=== PATIENT | female | born 1980 | race African-American/Black ===

== ENCOUNTER 2016-11-13 18:57 | Emergency (ER) | payer BC, OTHER ==
[~2016-11-13] VITALS: Ht 165.1 cm; Wt 77.5 kg
[~2016-11-13 18:57] MED LIST: BACT800T5 PO; PYRI200T4 PO
[2016-11-13 18:59] VITALS: BP 133/72; PULSE 86; RESP 16; TEMP 97.9; O2SAT 99
[2016-11-13] MEDS ORDERED: ZOLO50TA PO (19:39)
[2016-11-13] MEDS ORDERED: PYRI200T4 PO (19:41)
[2016-11-13] MEDS ORDERED: CIPR-9 PO (19:41)
--- NOTE | 2016-11-13 19:43 | PD ---
HPI Chief Complaint: Complaint Time Seen by Provider: 19:41 Travel History International Travel<30 days: No Contact w/Intl Traveler<30days: No Traveled to known affect area: No History of Present Illness HPI 35-year-old black female presents with three-day history of increased urinary frequency, urgency, dysuria which she reports similar to urinary tract infection she has had in the past. She denies any fever chills. No back pain. No abdominal pain. Symptoms are moderate. No alleviating factors. PFSH Past Medical History Arthritis: No Asthma: No Anxiety: Yes Depression: Yes Heart Rhythm Problems: No Cardiovascular Problems: No High Cholesterol: No Chest Pain: No Congestive Heart Failure: No COPD: No Cerebrovascular Accident: No Diminished Hearing: No GERD: No Genitourinary: Yes (uti) Headaches: No Hepatitis: No Hiatal Hernia: No Hypertension: No Kidney Stones: No Musculoskeletal: No Neurologic: No Reproductive: No Respiratory: No Immunizations Current: No Migraines: No Myocardial Infarction: No Renal Failure: No Seizures: No Sleep Apnea: No Ulcer: No Tetanus Vaccination: < 5 Years Influenza Vaccination: No ?: Not LMP: 11/11/16 Menopausal: Yes : 4 Para: 4 : 1 Dilation and Curettage (D&C): Yes Tubal Ligation: Yes Past Surgical History Abdominal Surgery: No Appendectomy: No Cardiac Surgery: No Section: Yes (X2) Cholecystectomy: No Ear Surgery: No Endocrine Surgery: No Eye Surgery: No Genitourinary Surgery: No Gynecologic Surgery: No Neurologic Surgery: No Oral Surgery: No Thoracic Surgery: No Other Surgery: Yes ( in 1999) Family History Family Hypercholesterolemia: Yes (PATERNAL) Social History Alcohol Use: Yes (OCCASIONALLY) Tobacco Use: Yes ( occ) Substance Use: No Allergies-Medications (Allergen,Severity, Reaction): Coded Allergies: No Known Allergies (Verified , 11/13/16) Reported Meds & Prescriptions Reported Meds & Active Scripts Active Pyridium (Phenazopyridine HCl) 200 Mg Tab 200 Mg PO Q8H PRN Cipro (Ciprofloxacin HCl) 500 Mg Tab 500 Mg PO BID Reported Zoloft (Sertraline HCl) 50 Mg Tab 50 Mg PO DAILY Review of Systems Except as stated in HPI: all other systems reviewed are Neg Physical Exam Narrative GENERAL: This is a well-nourished, well-developed patient, in no apparent distress. SKIN: No rashes, ecchymoses or lesions. Warm and dry. HEAD: Atraumatic. Normocephalic. EYES: PERRL, EOMI, no discharge or injection. No scleral icterus. EARS: Clear NOSE: Nasal turbinates appear normal. THROAT: Mucosa pink and moist. Airway patent. NECK: Trachea midline. supple, moves head freely. LUNGS: Clear to auscultation. CV: Regular in rhythm. ABDOMEN: Soft nontender. No CVA tenderness EXT: No clubbing cyanosis or edema. Data Data Last Documented VS Vital Signs Date Time Temp Pulse Resp B/P Pulse Ox O2 Delivery O2 Flow Rate FiO2 11/13/16 19:37 14 11/13/16 18:59 97.9 86 133/72 99 Room Air Orders Urinalysis - C+S If Indicated (11/13/16 19:17) Ciprofloxacin (Cipro) (11/13/16 19:45) Phenazopyridine (Pyridium) (11/13/16 19:45) Urine Culture (11/13/16 19:30) Labs Laboratory Tests Test 11/13/16 19:30 Urine Color YELLOW Urine Turbidity HAZY Urine pH 5.5 Urine Specific [place] 1.022 Urine Protein TRACE mg/dL Urine Glucose (UA) NEG mg/dL Urine Ketones NEG mg/dL Urine Occult Blood SMALL Urine Nitrite POS Urine Bilirubin NEG Urine Urobilinogen LESS THAN 2.0 MG/DL Urine Leukocyte Esterase LARGE Urine RBC 17 /hpf Urine WBC /hpf Urine Squamous Epithelial 1 /hpf Cells Urine Bacteria MANY /hpf Urine Mucus FEW /lpf Microscopic Urinalysis Comment CULTURE INDICATED MDM Medical Decision Making Medical Screen Exam Complete: Yes Emergency Medical Condition: Yes Medical Record Reviewed: Yes Interpretation(s) Laboratory Tests Test 11/13/16 19:30 Urine Color YELLOW Urine Turbidity HAZY Urine pH 5.5 Urine Specific [place] 1.022 Urine Protein TRACE mg/dL Urine Glucose (UA) NEG mg/dL Urine Ketones NEG mg/dL Urine Occult Blood SMALL Urine Nitrite POS Urine Bilirubin NEG Urine Urobilinogen LESS THAN 2.0 MG/DL Urine Leukocyte Esterase LARGE Urine RBC 17 /hpf Urine WBC /hpf Urine Squamous Epithelial 1 /hpf Cells Urine Bacteria MANY /hpf Urine Mucus FEW /lpf Microscopic Urinalysis Comment CULTURE INDICATED Differential Diagnosis Differential diagnoses: UTI, vaginitis, pyelonephritis Narrative Course Patient's given Cipro 500 and Pyridium 200 mg by mouth. This is UTI Diagnosis Primary Impression: UTI (urinary tract infection) Patient Instructions: General Instructions Additional Instructions: Rest. Increase fluids. Cipro and Pyridium. Follow-up with a primary care doctor in one week. Return to the ER for any problems. Med/Other Pt SpecificInfo: Prescription(s) given Scripts Phenazopyridine (Pyridium)200 Mg [id number] Mg PO Q8H PRN (DYSURIA) #9 TAB Prov:Lv Prescott MD 11/13/16 Ciprofloxacin (Cipro)500 Mg [id number] Mg PO BID #10 TAB Prov:Lv Prescott MD 11/13/16 Disposition: 01 DISCHARGE HOME Condition: Stable Pradip Washington Nov 13, 2016 19:43
[2016-11-13] MEDS ORDERED: PHENAZOPYRIDINE HCL 200 MG TAB PO ONE (19:45)
[2016-11-13] MEDS ORDERED: CIPROFLOXACIN 500 MG TAB PO ONE (19:45)
[2016-11-13 19:46] LABS: BACTERIA, URINE MANY /hpf; BLOOD, URINE SMALL (NEG); COMMENT (UR) CULTURE INDICATED; CULTURE IF INDICATED CULTURE INDICATED; GLUCOSE,URINE NEG (NEG); KETONE, URINE NEG (NEG); MUCUS URINE FEW /lpf (OCC); PH, URINE 5.5 (5.0-8.5); SQUAMOUS EPITHELIAL CELL URINE 1 /hpf (0-5); URINE COLOR YELLOW (YELLW/STRAW)
[2016-11-13 19:47] LABS: NITRITE,URINE POS (NEG)
== END 2016-11-13 19:49 | disposition home or self-care (01) ==
LOC: NEPB 18:57
DX: N39.0 Urinary tract infection, site not specified (principal); B96.29 Other Escherichia coli [E. coli] as the cause of diseases classified elsewhere
CPT/HCPCS: 81001; 87077; 87086; 87186; 99283

== ENCOUNTER 2016-11-26 17:00 | Emergency (ER) | payer BC, OTHER ==
[~2016-11-26] VITALS: Ht 162.6 cm; Wt 78.0 kg
[~2016-11-26 17:00] MED LIST changes: -BACT800T5 PO; +CIPR-9 PO; +ZOLO50TA PO
[2016-11-26 17:02] VITALS: BP 134/85; PULSE 90; RESP 16; TEMP 98.6; O2SAT 96
--- NOTE | 2016-11-26 17:52 | PD ---
HPI Chief Complaint: Complaint Time Seen by Provider: 17:48 Travel History International Travel<30 days: No Contact w/Intl Traveler<30days: No Traveled to known affect area: No History of Present Illness HPI 35-year-old female presents to the emergency department for evaluation of suprapubic tenderness, dysuria that started this morning. Patient was seen up a very tall, 2016 and was diagnosed with UTI. She was given a prescription for Cipro. However, she was found to be resistant to Cipro and switch changed to Macrobid. She states she took the Macrobid her symptoms resolved. However, she started with reoccurring symptoms this morning. She also states that she did have some abnormal vaginal discharge 2 days ago and believes she may have a yeast infection. She denies any risk of STDs reporting no new sexual partners. Patient also reports some vaginal dryness and believes she may have a yeast infection. No fevers or chills. No back pain. No nausea or vomiting. Patient denies reporting a previous tubal ligation. PFSH Past Medical History Arthritis: No Asthma: No Anxiety: Yes Depression: Yes Heart Rhythm Problems: No Cardiovascular Problems: No High Cholesterol: No Chest Pain: No Congestive Heart Failure: No COPD: No Cerebrovascular Accident: No Diminished Hearing: No GERD: No Genitourinary: Yes (uti) Headaches: No Hepatitis: No Hiatal Hernia: No Hypertension: No Kidney Stones: No Musculoskeletal: No Neurologic: No Reproductive: No Respiratory: No Immunizations Current: No Migraines: No Myocardial Infarction: No Renal Failure: No Seizures: No Sleep Apnea: No Ulcer: No ?: Unknown LMP: 8 days ago Menopausal: Yes : 4 Para: 4 : 1 Dilation and Curettage (D&C): Yes Tubal Ligation: Yes Past Surgical History Abdominal Surgery: No Appendectomy: No Cardiac Surgery: No Section: Yes (X2) Cholecystectomy: No Ear Surgery: No Endocrine Surgery: No Eye Surgery: No Genitourinary Surgery: No Gynecologic Surgery: No Neurologic Surgery: No Oral Surgery: No Thoracic Surgery: No Other Surgery: Yes ( in 1999) Family History Family Hypercholesterolemia: Yes (PATERNAL) Social History Alcohol Use: Yes (OCCASIONALLY) Tobacco Use: Yes ( occ) Substance Use: No Allergies-Medications (Allergen,Severity, Reaction): Coded Allergies: No Known Allergies (Verified , 11/26/16) Reported Meds & Prescriptions Reported Meds & Active Scripts Active Pyridium (Phenazopyridine HCl) 200 Mg Tab 200 Mg PO Q8H PRN Cipro (Ciprofloxacin HCl) 500 Mg Tab 500 Mg PO BID Review of Systems Except as stated in HPI: all other systems reviewed are Neg Physical Exam Narrative GENERAL: Well-developed well-nourished female patient, ambulatory. Afebrile. SKIN: Warm and dry. HEAD: Normocephalic. Atraumatic. EYES: No scleral icterus. No injection or drainage. NECK: Supple, trachea midline. No JVD or lymphadenopathy. CARDIOVASCULAR: Regular rate and rhythm without murmurs, gallops, or rubs. RESPIRATORY: Breath sounds equal bilaterally. No accessory muscle use. Lungs sounds clear to auscultation. GASTROINTESTINAL: Abdomen soft and nondistended. Mild suprapubic tenderness to palpation. MUSCULOSKELETAL: No cyanosis, or edema. BACK: Nontender without obvious deformity. No CVA tenderness. GENITOURINARY: Normal external genitalia without lesions or erythema. Vaginal vault without blood or drainage. Cervical os was closed without drainage. No cervical motion tenderness. Uterus nontender and nonenlarged. Bilateral adnexa nontender without masses. Pelvic exam was done with nurse at bedside. Data Data Last Documented VS Vital Signs Date Time Temp Pulse Resp B/P Pulse Ox O2 Delivery O2 Flow Rate FiO2 11/26/16 17:08 11/26/16 17:02 98.6 90 16 96 Room Air Orders Urinalysis - C+S If Indicated (11/26/16 17:10) Gc And Chlamydia Pcr (11/26/16 17:47) Wet Prep Profile (11/26/16 17:47) Urine Culture (11/26/16 17:15) Labs Laboratory Tests Test 11/26/16 11/26/16 17:15 17:57 Urine Color DARK-BROWN Urine Turbidity HAZY Urine pH 5.5 Urine Specific [place] 1.015 Urine Protein TRACE mg/dL Urine Glucose (UA) NEG mg/dL Urine Ketones NEG mg/dL Urine Occult Blood TRACE Urine Nitrite POS Urine Bilirubin SMALL Urine Urobilinogen 2.0 MG/DL Urine Leukocyte Esterase LARGE Urine RBC 5 /hpf Urine WBC /hpf Urine WBC Clumps FEW Urine Squamous Epithelial 2 /hpf Cells Urine Bacteria RARE /hpf Microscopic Urinalysis Comment CULTURE INDICATED Clue Cells (Wet Prep) NONE SEEN Vaginal Trichomonas (Wet Prep) NONE SEEN Vaginal Yeast (Wet Prep) NONE SEEN MDM Medical Decision Making Medical Screen Exam Complete: Yes Emergency Medical Condition: Yes Medical Record Reviewed: Yes Differential Diagnosis UTI versus pyelonephritis versus vaginitis Narrative Course 35-year-old female presents to the emergency department for evaluation of urinary symptoms that started this morning as well as possible vaginal candidiasis. Patient appears well on exam. Vital signs are stable. UA is ordered and pending. Patient gives verbal consent for pelvic exam. UA shows trace occult blood, positive nitrate, large leukocyte esterase, consistent with acute infection. Wet prep is negative for clue cells, Trichomonas, yeast. Patient will be discharged prescription for Keflex for UTI. She'll be given her first dose in the emergency department. She is instructed to return for any acute worsening of symptoms that she is to follow- up with her primary care physician. Patient verbalizes agreement and understanding. Diagnosis Primary Impression: UTI (urinary tract infection) Qualified Code: N30.00 - Acute cystitis without hematuria Referrals: Primary Care Physician call for appointment Patient Instructions: General Instructions, Urinary Tract Infection in Women ( ED) Additional Instructions: Take antibiotic as directed until gone. Drink plenty of fluids. Follow-up with your primary care physician. Return to the emergency department for any acute worsening of symptoms. Med/Other Pt SpecificInfo: Prescription(s) given Scripts Cephalexin (Keflex)500 Mg [id number] Mg PO Q8H 7 Days Ref 0 Prov:Francoise Vogt 11/26/16 Disposition: 01 DISCHARGE HOME Condition: Stable Francoise Vogt Nov 26, 2016 17:51
[2016-11-26 18:05] LABS: BACTERIA, URINE RARE /hpf; BLOOD, URINE TRACE (NEG); COMMENT (UR) CULTURE INDICATED; CULTURE IF INDICATED CULTURE INDICATED; GLUCOSE,URINE NEG (NEG); KETONE, URINE NEG (NEG); PH, URINE 5.5 (5.0-8.5); SQUAMOUS EPITHELIAL CELL URINE 2 /hpf (0-5)
[2016-11-26 18:06] LABS: NITRITE,URINE POS (NEG); URINE COLOR DARK-BROWN (YELLW/STRAW)
[2016-11-26] MEDS ORDERED: CEPH-460 PO (18:46)
[2016-11-26] MEDS ORDERED: CEPHALEXIN MONOHYDRATE 500 MG CAP PO ONE (19:00)
[2016-11-26 22:16] LABS: CHLAMYDIA PCR NOT DETECTED (NOT DETECT); NEISSERIA PCR NOT DETECTED (NOT DETECT)
== END 2016-11-26 19:17 | disposition home or self-care (01) ==
LOC: NEPA 17:00
DX: N39.0 Urinary tract infection, site not specified (principal); B96.20 Unspecified Escherichia coli [E. coli] as the cause of diseases classified elsewhere; N89.8 Other specified noninflammatory disorders of vagina
CPT/HCPCS: 81001; 87077; 87086; 87186; 87210; 87491; 87591; 99283

== ENCOUNTER 2017-04-29 08:40 | Emergency (ER) | payer BC, OTHER ==
[~2017-04-29] VITALS: Ht 162.6 cm; Wt 75.0 kg
[~2017-04-29 08:40] MED LIST changes: +CEPH-460 PO; -ZOLO50TA PO
[2017-04-29 08:42] VITALS: BP 150/88; PULSE 76; RESP 16; TEMP 98.5; O2SAT 100
--- NOTE | 2017-04-29 08:59 | PD ---
HPI Chief Complaint: Complaint Time Seen by Provider: 08:54 Travel History International Travel<30 days: No Contact w/Intl Traveler<30days: No Traveled to known affect area: No History of Present Illness HPI PATIENT C/O BURNING, FREQUENCY AND URGENCY FOR LAST DAY AND A HALF..SOME OCCASIONAL SUPRAPUBIC DISCOMFORT DESCRIBED PRESSURE 4/10...NO HEMATURIA, NO VAGINAL D/C, STATES SHE HAD HER NORMAL PERIOD ALREADY......DENIES ANY ALLEVIATING / AGGRAVATING FACTORS PFSH Past Medical History Arthritis: No Asthma: No Anxiety: Yes Depression: Yes Heart Rhythm Problems: No Cardiovascular Problems: No High Cholesterol: No Chest Pain: No Congestive Heart Failure: No COPD: No Cerebrovascular Accident: No Diminished Hearing: No GERD: No Genitourinary: Yes (uti) Headaches: No Hepatitis: No Hiatal Hernia: No Hypertension: No Kidney Stones: No Musculoskeletal: No Neurologic: No Reproductive: No Respiratory: No Immunizations Current: No Migraines: No Myocardial Infarction: No Renal Failure: No Seizures: No Sleep Apnea: No Ulcer: No ?: Not LMP: 03/03/17 Menopausal: Yes : 4 Para: 4 : 1 Dilation and Curettage (D&C): Yes Tubal Ligation: Yes Past Surgical History Abdominal Surgery: No Appendectomy: No Cardiac Surgery: No Section: Yes (X2) Cholecystectomy: No Ear Surgery: No Endocrine Surgery: No Eye Surgery: No Genitourinary Surgery: No Gynecologic Surgery: No Neurologic Surgery: No Oral Surgery: No Thoracic Surgery: No Other Surgery: Yes ( in 1999) Family History Family Hypercholesterolemia: Yes (PATERNAL) Social History Alcohol Use: Yes (OCCASIONALLY) Tobacco Use: Yes ( occ) Substance Use: No Allergies-Medications (Allergen,Severity, Reaction): Coded Allergies: No Known Allergies (Verified , 04/29/17) Reported Meds & Prescriptions Reported Meds & Active Scripts Active No Active Prescriptions or Reported Medications Review of Systems Except as stated in HPI: all other systems reviewed are Neg Genitourinary: Positive: Urgency, Frequency, Dysuria Physical Exam Narrative GENERAL: SKIN: Warm and dry. HEAD: Atraumatic. Normocephalic. EYES: Pupils equal and round. No scleral icterus. No injection or drainage. ENT: No nasal bleeding or discharge. Mucous membranes pink and moist. NECK: Trachea midline. No JVD. CARDIOVASCULAR: Regular rate and rhythm. RESPIRATORY: No accessory muscle use. Clear to auscultation. Breath sounds equal bilaterally. GASTROINTESTINAL: Abdomen soft, non-tender, nondistended. Hepatic and splenic margins not palpable. MUSCULOSKELETAL: Extremities without clubbing, cyanosis, or edema. No obvious deformities. NEUROLOGICAL: Awake and alert. No obvious cranial nerve deficits. Motor grossly within normal limits. Five out of 5 muscle strength in the arms and legs. Normal speech. PSYCHIATRIC: Appropriate mood and affect; insight and judgment normal. Data Data Last Documented VS Vital Signs Date Time Temp Pulse Resp B/P Pulse Ox O2 Delivery O2 Flow Rate FiO2 04/29/17 08:59 80 18 04/29/17 08:42 98.5 150/88 100 Orders Ed Urine Pregnancytest Poc (04/29/17 09:05) Urinalysis - C+S If Indicated (04/29/17 09:12) Urine Culture (04/29/17 08:59) Labs Laboratory Tests Test 04/29/17 08:59 Urine Color YELLOW Urine Turbidity HAZY Urine pH 5.5 Urine Specific [place] 1.003 Urine Protein TRACE mg/dL Urine Glucose (UA) NEG mg/dL Urine Ketones NEG mg/dL Urine Occult Blood SMALL Urine Nitrite NEG Urine Bilirubin NEG Urine Urobilinogen LESS THAN 2.0 MG/DL Urine Leukocyte Esterase LARGE Urine RBC 4 /hpf Urine WBC 120 /hpf Urine WBC Clumps FEW Urine Squamous Epithelial <1 /hpf Cells Urine Bacteria FEW /hpf Microscopic Urinalysis Comment CULTURE INDICATED MDM Medical Decision Making Medical Screen Exam Complete: Yes Emergency Medical Condition: Yes Medical Record Reviewed: Yes Differential Diagnosis UTI V RELATED Narrative Course PATIENT'S BEDSIDE NEG, AND CURRENTLY AWAITING UA RESULTS Diagnosis Primary Impression: UTI (urinary tract infection) Qualified Code: N30.00 - Acute cystitis without hematuria Patient Instructions: General Instructions, Urinary Tract Infection in Women ( ED) Scripts Fluconazole (Diflucan)150 Mg [id number] Mg PO ONCE #1 TAB Prov:Jovanny Martinez MD 04/29/17 Nitrofurantoin Monohydrate Macrocrystals (Macrobid)100 Mg [id number] Mg PO BID #14 CAP Prov:Jovanny Martinez MD 04/29/17 Disposition: 01 DISCHARGE HOME Condition: Stable Jovanny Martinez MD Apr 29, 2017 08:59
[2017-04-29 09:35] LABS: BACTERIA, URINE FEW /hpf; BLOOD, URINE SMALL (NEG); COMMENT (UR) CULTURE INDICATED; CULTURE IF INDICATED CULTURE INDICATED; GLUCOSE,URINE NEG (NEG); KETONE, URINE NEG (NEG); NITRITE,URINE NEG (NEG); PH, URINE 5.5 (5.0-8.5); SQUAMOUS EPITHELIAL CELL URINE <1 /hpf (0-5); URINE COLOR YELLOW (YELLW/STRAW)
[2017-04-29] MEDS ORDERED: DIFL150T PO (09:55)
[2017-04-29] MEDS ORDERED: MACR100C2 PO (09:55)
== END 2017-04-29 10:56 | disposition home or self-care (01) ==
LOC: NEPC 08:40
DX: N39.0 Urinary tract infection, site not specified (principal); B96.20 Unspecified Escherichia coli [E. coli] as the cause of diseases classified elsewhere
CPT/HCPCS: 81001; 84703; 87077; 87086; 87186; 99284

== ENCOUNTER 2018-03-26 09:40 | Emergency (ER) | payer BC, MEDICAID ==
[~2018-03-26] VITALS: Ht 165.1 cm; Wt 70.0 kg
[~2018-03-26 09:40] MED LIST changes: -CEPH-460 PO; -CIPR-9 PO; +OSEL75 PO; -PYRI200T4 PO
[2018-03-26 09:46] VITALS: BP 148/74; PULSE 81; RESP 16; TEMP 98.7; O2SAT 99
--- NOTE | 2018-03-26 10:01 | PD ---
HPI Chief Complaint: Complaint Time Seen by Provider: 09:52 Travel History International Travel<30 days: No Contact w/Intl Traveler<30days: No Traveled to known affect area: No History of Present Illness HPI 37-year-old female presents the ED for evaluation of 2 day history of "bladder pressure" and increased urinary frequency. Symptoms onset gradually. Patient endorses mild right-sided back pain. She denies fever, chills, nausea, vomiting , abdominal pain, vaginal discharge, vaginal odor, dysuria, hematuria. Denies risk of . Patient states symptoms are similar to previous episodes of UTI. She states that she took Macrobid for her last UTI, about 6-8 weeks ago when she was seen at an out outside hospital. PFSH Past Medical History Arthritis: No Asthma: No Anxiety: Yes Depression: Yes Heart Rhythm Problems: No Cardiovascular Problems: No High Cholesterol: No Chest Pain: No Congestive Heart Failure: No COPD: No Cerebrovascular Accident: No Diabetes: No (GESTATIONAL DIABETES) Diminished Hearing: No GERD: No Genitourinary: Yes (uti) Headaches: No Hepatitis: No Hiatal Hernia: No Hypertension: No Kidney Stones: No Musculoskeletal: No Neurologic: No Reproductive: No Respiratory: No Immunizations Current: No Migraines: No Myocardial Infarction: No Renal Failure: No Seizures: No Sleep Apnea: No Ulcer: No ?: Not Menopausal: Yes : 4 Para: 4 : 1 Dilation and Curettage (D&C): Yes Tubal Ligation: Yes Past Surgical History Abdominal Surgery: No Appendectomy: No Cardiac Surgery: No Section: Yes (X2) Cholecystectomy: No Ear Surgery: No Endocrine Surgery: No Eye Surgery: No Genitourinary Surgery: No Gynecologic Surgery: No Neurologic Surgery: No Oral Surgery: No Thoracic Surgery: No Other Surgery: Yes ( in 1999) Family History Family Hypercholesterolemia: Yes (PATERNAL) Social History Alcohol Use: Yes (OCCASIONALLY) Tobacco Use: Yes ( occ) Substance Use: No Allergies-Medications (Allergen,Severity, Reaction): Coded Allergies: No Known Allergies (Verified Allergy, Unknown, 03/26/18) Reported Meds & Prescriptions Reported Meds & Active Scripts Active Keflex (Cephalexin) 500 Mg Cap 500 Mg PO Q12H 5 Days Review of Systems Except as stated in HPI: all other systems reviewed are Neg Physical Exam Narrative GENERAL: Well-nourished, well-developed -[place] female no acute distress. SKIN: Focused skin assessment warm/dry. HEAD: Normocephalic. EYES: No scleral icterus. No injection or drainage. NECK: Supple, trachea midline. No JVD or lymphadenopathy. CARDIOVASCULAR: Regular rate and rhythm without murmurs, gallops, or rubs. RESPIRATORY: Breath sounds clear and equal bilaterally. No accessory muscle use. GASTROINTESTINAL: Abdomen soft, non-tender, nondistended. No suprapubic tenderness. Active bowel sounds. MUSCULOSKELETAL: No cyanosis, or edema. Walks with a normal gait. BACK: Nontender without obvious deformity. No CVA tenderness. Data Data Last Documented VS Vital Signs Date Time Temp Pulse Resp B/P (MAP) Pulse Ox O2 Delivery O2 Flow Rate FiO2 03/26/18 09:46 98.7 81 16 148/74 (98) 99 Orders Orders Urinalysis - C+S If Indicated (03/26/18 09:52) Urine Culture (03/26/18 10:00) Ed Discharge Order (03/26/18 10:55) Labs Laboratory Tests Test 03/26/18 10:00 Urine Color [place] Urine Turbidity CLOUDY Urine pH 6.0 Urine Specific [place] 1.011 Urine Protein NEG mg/dL Urine Glucose (UA) NEG mg/dL Urine Ketones NEG mg/dL Urine Occult Blood NEG Urine Nitrite POS Urine Bilirubin NEG Urine Urobilinogen 2.0 mg/dL Urine Leukocyte Esterase MOD Urine RBC 10 /hpf Urine WBC /hpf Urine WBC Clumps MOD Urine Squamous Epithelial Cells 3 /hpf Urine Bacteria MANY /hpf Urine Mucus FEW /lpf Microscopic Urinalysis Comment CULTURE INDICATED MDM Medical Decision Making Medical Screen Exam Complete: Yes Emergency Medical Condition: Yes Differential Diagnosis Cystitis versus pyelonephritis versus UTI versus candidiasis versus other Narrative Course 37-year-old female presents to the ED for evaluation of 2-day history of "bladder pressure" and increased urinary frequency. Similar to previous UTI symptoms. On exam the patient is nontoxic-appearing. No suprapubic tenderness. No CVA tenderness. UA cloudy, nitrite positive, moderate leukocyte Estrace, innumerable WBCs, moderate WBC clumps, many bacteria. Culture indicated. I reviewed the patient's record. Last urine culture grew pansensitive E. coli. Patient's prescribed Keflex 500 mg twice daily times 5 days. I offered her the first dose in the emergency room. She states she does not want to wait for the pen time. She is instructed to begin the antibiotics today and take them until every dose is gone, follow with the primary care provider, return for worsening symptoms. She indicated understanding of the instructions. She is stable and discharged home. Diagnosis Primary Impression: Acute cystitis Qualified Codes: N30.00 - Acute cystitis without hematuria Referrals: Primary Care Physician Additional Instructions: Rest, hydrate. Begin antibiotics today and take them as prescribed until every dose is gone. Follow-up with the primary care provider. Return to the ED for any urgent or emergent medical condition. Med/Other Pt SpecificInfo: Prescription(s) given Scripts Cephalexin (Keflex) 500 Mg Cap 500 MG PO Q12H for Infection for 5 Days, #10 CAP 0 Refills Prov: Melisa Antoine DO 03/26/18 Disposition: 01 DISCHARGE HOME Condition: Stable Aviva Bhatia Mar 26, 2018 10:01
[2018-03-26 10:43] LABS: BACTERIA, URINE MANY /hpf; BILIRUBIN, URINE NEG (NEG); BLOOD, URINE NEG (NEG); GLUCOSE,URINE NEG (NEG); KETONE, URINE NEG (NEG); MUCUS URINE FEW /lpf (OCC); NITRITE,URINE POS (NEG); SQUAMOUS EPITHELIAL CELL URINE 3 /hpf (0-5); URINE COLOR Amber (YELLW/STRAW); URINE LEUKOCYTE ESTERASE MOD (NEG); WHITE BLOOD CELL CLUMPS MOD
[2018-03-26] MEDS ORDERED: CEPH-460 PO (10:55)
== END 2018-03-26 11:24 | disposition home or self-care (01) ==
LOC: NEPD 09:40
DX: N30.00 Acute cystitis without hematuria (principal); Z72.0 Tobacco use
CPT/HCPCS: 81001; 87077; 87086; 87186; 99283